=== PATIENT | female | born 1945 | race Caucasian/White ===

== ENCOUNTER 2023-02-11 06:24 | Emergency (ER) | payer MEDICARE ==
[~2023-02-11] VITALS: Ht 154.9 cm; Wt 108.9 kg
[2023-02-11] MEDS ORDERED: MIRALAX 17 GM POWD.PACK ONE (07:25)
[2023-02-11] MEDS ORDERED: DOCUSATE SODIUM 100 MG CAPSULE PO ONE (07:25)
[2023-02-11] MEDS: MAGNESIUM CITRATE 296 ML BOTTLE PO ONE ×2 (07:49→07:56)
[2023-02-11] MEDS: GLYCERIN ADULT RECTAL SUPP EACH RC ONE ×2 (07:50→07:56)
[2023-02-11] MEDS: SENNOSIDES 1 TABLET PO ONE ×2 (07:50→07:56)
[2023-02-11] MEDS: DOCUSATE SODIUM 100 MG CAPSULE PO ONE ×2 (07:50→07:56)
[2023-02-11] MEDS: MIRALAX 17 GM POWD.PACK PO ONE ×2 (07:50→07:56)
--- NOTE | 2023-02-11 07:50 | NUR ---
Patient refused all the medications. Patient said that she had a large BM just "a few minutes ago". MD notified.
--- NOTE | 2023-02-11 07:56 | NUR ---
Patient discharged to home by Dr Bernstein in stable condition with wheelchair. Written and verbal after care instructions given to patient and family by DEON Black. Patient and family verbalized understanding of instructions. Stressed follow up with primary doctor and surgeon or return to ER for worsening s/s.
[2023-02-11 07:57] VITALS: BP 122/56
== END 2023-02-11 07:58 | disposition home or self-care (01) ==
LOC: ER 06:24
DX: K59.00 Constipation, unspecified (principal); I48.91 Unspecified atrial fibrillation; J45.909 Unspecified asthma, uncomplicated; Z88.8 Allergy status to other drugs, medicaments and biological substances
CPT/HCPCS: A4663